=== PATIENT | female | born 1980 | race Caucasian/White ===

== ENCOUNTER 2024-09-21 13:29 | Emergency (ER) | payer BC ==
[2024-09-21 15:00] LABS: Absolute Basophils 0.1 K/uL (0-0.5); Absolute Eosinophils 0.3 K/uL (0-0.5); Absolute Lymphocytes (CBC) 2.9 K/uL (0.7-4.9); Absolute Monocytes 0.7 K/uL (0.1-1.3); Absolute Neutrophil 9.8 K/uL (1.8-8.0); Basophils % 0.8 % (0-1.3); Eosinophils % 1.9 % (0-4.4); Hematocrit 40.8 % (36.0-45.0); Hemoglobin 13.8 g/dL (12.0-15.0); Lymphocytes % 20.9 % (15.3-44.8); MCH 31.1 pg (27.0-35.0); MCHC 33.8 g/dL (32.0-36.0); MCV 92.1 fL (80-100); MPV 7.2 fL (7.6-11.3); Neutrophils % 71.4 % (41.7-73.7); Platelets 458 thou/uL (152-406); RBC Red Blood Cell Count 4.43 M/uL (3.86-4.86); Red Cell Distribution Width 13.5 % (12.1-15.2)
--- NOTE | 2024-09-21 15:12 | RAD REPORT ---
EXAMINATION: Transvaginal Study Probe CLINICAL INDICATION: Vaginal bleeding TECHNIQUE: Real-time ultrasonography of the pelvis was performed transvaginally. Color and spectral D oppler evaluation of the ovaries was performed. COMPARISON: 2017. FINDINGS: The uterus measures 8 x 4 x 4 cm. A fibroid is not seen. The endometrial stripe measures 7 mm 5.3 cm simple appearing right ovarian cyst. Blood flow is present to the right ovary. Left ovary normal in size and echotexture. Right and left adnexa unremarkable No significant free fluid IMPRESSION: 5.3 cm probable benign right ovarian cyst. Recommend follow-up ultrasound in 3-6 months
[2024-09-21 15:13] LABS: Anion Gap 7.6 mEq/L (5.0-15.0); Potassium 3.6 mEq/L (3.5-5.1)
--- NOTE | 2024-09-21 16:33 | ER ---
Nurse's Notes [facility] Name: Primo Luong Age: 44 yrs Sex: Female : 1980 Arrival Date: 09/21/2024 Time: 13:29 Bed 6 Private MD: Diagnosis: Other ovarian cysts Presentation: 09/21 13:58 Chief complaint: Patient states: Started period 2 weeks ago and pt states that she is cm10 still bleeding. Pt reports changing pad 5 times in 1 hr. Pt reports passing clots. Pt also reports abdominal pain and cramping. Coronavirus screen: Client denies travel out of the [place] in the last 14 days. Ebola Screen: Patient denies travel to an Ebola-affected area in the 21 days before illness onset. No symptoms or risks identified at this time. Initial Sepsis Screen: Does the patient meet any 2 criteria? No. Patient's initial sepsis screen is negative. Does the patient have a suspected source of infection? No. Patient's initial sepsis screen is negative. Risk Assessment: Do you want to hurt yourself or someone else? Patient reports no desire to harm self or others. Onset of symptoms was September 21, 2024. 13:58 Method Of Arrival: Ambulatory cm10 13:58 Acuity: FELECIA 3 cm10 Triage Assessment: 13:59 General: Appears in no apparent distress. uncomfortable, Behavior is calm, cooperative. cm10 Neuro: No deficits noted. Level of Consciousness is awake, alert, obeys commands, Oriented to person, place, time, situation, Appropriate for age. Respiratory: No deficits noted. Airway is patent Respiratory effort is even, unlabored, Respiratory pattern is regular, symmetrical. : Reports cramping, in bilateral lower quadrant(s) vaginal bleeding that is with clots, heavy flow. 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 - Infectious Disease History:: Denies. - Social history:: Smoking status: Patient reports the use of cigarette tobacco products, denies chronic smoking, but will smoke occasionally, Reported history of juuling and/or vaping. Screenin:17 [facility] ED Fall Risk Assessment (Adult) History of falling in the last 3 months, ko1 including since admission No falls in past 3 months (0 pts) Confusion or Disorientation No (0 pts) Intoxicated or Sedated No (0 pts) Impaired Gait No (0 pts) Mobility Assist Device Used No (0 pt) Altered Elimination No (0 pt) Score/Fall Risk Level 0 - 2 = Low Risk Oriented to surroundings, Maintained a safe environment, Educated pt \T\ family on fall prevention, incl call for assistance when getting out of bed, Assessed \T\ reinforced patient's understanding of fall precautions, Provided non-skid footwear, Hourly rounding (assess needs \T\ fall precautionary measures) done. Abuse screen: Denies threats or abuse. Denies injuries from another. Nutritional screening: No deficits noted. Tuberculosis screening: No symptoms or risk factors identified. Assessment: 15:18 General: Appears in no apparent distress. comfortable, Behavior is calm, cooperative, ko1 appropriate for age. Pain: Denies pain. Neuro: No deficits noted. Cardiovascular: No deficits noted. Respiratory: No deficits noted. GI: No deficits noted. : Reports vaginal bleeding that is bright red, with clots, heavy flow. EENT: No deficits noted. No signs and/or symptoms were reported regarding the EENT system. Derm: No deficits noted. No signs and/or symptoms reported regarding the dermatologic system. Musculoskeletal: No deficits noted. No signs and/or symptoms reported regarding the musculoskeletal system. Vital Signs: 13:58 BP 151 / 96; Pulse 76; Resp 15; Temp 98.3; Pulse Ox 99% on R/A; Weight 72.57 kg; Height cm10 5 ft. 2 in. ; Pain 9/10; 15:17 BP 118 / 81; Pulse 67; Resp 15; Pulse Ox 100% on R/A; ko1 16:43 BP 124 / 76; Pulse 72; Resp 15; Pulse Ox 99% ; ko1 13:58 Body Mass Index 29.26 (72.57 kg, 157.48 cm) cm10 13:58 Pain Scale: Adult cm10 ED Course: 13:32 Patient arrived in ED. ra3 13:49 Jono Barnett FNP-C is PHCP. dr5 13:49 Eladio Cabrera MD is Attending Physician. dr5 13:59 Triage completed. cm10 13:59 Arm band placed on right wrist. Patient placed in waiting room. cm10 15:07 Transvaginal Study Probe In Process Unspecified. EDMS 15:16 Keya Moody, RN is Primary Nurse. ko1 15:17 Patient has correct armband on for positive identification. Bed in low position. Call ko1 light in reach. Side rails up X 1. Provided Education on: labs. Pulse ox on. NIBP on. Door closed. Noise minimized. Lights dimmed. Warm blanket given. Pillow given. 16:00 Inserted saline lock: 20 gauge in left antecubital area, using aseptic technique. db Flushed with 10 mL NS. 16:16 Assist provider with pelvic exam: Set up pelvic tray. Performed by Jono PINTO db Patient tolerated well. 16:32 Yissel Leonard MD is Referral Physician. dr5 16:43 IV discontinued, intact, bleeding controlled, No redness/swelling at site. Pressure ko1 dressing applied. Administered Medications: No medications were administered Medication: 15:17 VIS not applicable for this client. ko1 Outcome: 16:32 Discharge ordered by MD. dr5 16:43 Discharged to home ambulatory, with family, ko1 16:43 Condition: stable 16:43 Discharge instructions given to patient, family, Instructed on discharge instructions, follow up and referral plans. medication usage, Demonstrated understanding of instructions, follow-up care, medications, Prescriptions given X 1, 16:44 Patient left the ED. ko1 Signatures: Dispatcher [employer] EDAR Keya Moody, RN RN ko1 Coty Arita, RN Shirley Jones, Jazmin Hale RN ra3 Jono Barnett, GEOFF-C TRANSPORTATION PROJECT MANAGER-Cdr5 Corrections: (The following items were deleted from the chart) 15:07 14:50 In radiology for Pelvis Complete+US.RAD.BRZ. EDAR EDMS
--- NOTE | 2024-09-21 16:33 | EDPHYS ---
Physician Documentation [facility] Name: Primo Luong Age: 44 yrs Sex: Female : 1980 Arrival Date: 09/21/2024 Time: 13:29 Bed 6 Private MD: MOHAN Physician Eladio Cabrera HPI: 09/21 13:57 This 44 yrs old Female presents to ER via Unassigned with complaints of dr5 Vaginal Bleeding. 13:57 The patient presents with vaginal bleeding that is heavy, with clots, reports using 5 dr5 pads or tampons per day. Patient reports she started her menstrual cycle on 09/10/2024 and has worsening vaginal bleeding yesterday and this morning. Patient reports 5 pads an hour with heavy clots and lower abdominal cramping. Patient reports having a tubal ligation completed 17 years ago. Patient denies vaginal discharge. Patient denies vaginal trauma or painful intercourse.. 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 - Infectious Disease History:: Denies. - Social history:: Smoking status: Patient reports the use of cigarette tobacco products, denies chronic smoking, but will smoke occasionally, Reported history of juuling and/or vaping. ROS: 13:57 Constitutional: as per hpi dr5 Exam: 17:35 Constitutional: This is a well developed, well nourished patient who is awake, alert, dr5 and in no acute distress. Head/Face: Normocephalic, atraumatic. Eyes: Pupils equal round and reactive to light, extra-ocular motions intact. Lids and lashes normal. Conjunctiva and sclera are non-icteric and not injected. Cornea within normal limits. Periorbital areas with no swelling, redness, or edema. Neck: Trachea midline, no thyromegaly or masses palpated, and no cervical lymphadenopathy. Supple, full range of motion without nuchal rigidity, or vertebral point tenderness. No Meningismus. Chest/axilla: Normal chest wall appearance and motion. Nontender with no deformity. No lesions are appreciated. Cardiovascular: Regular rate and rhythm with a normal S1 and S2. Normal PMI, no JVD. No pulse deficits. Respiratory: Lungs have equal breath sounds bilaterally, clear to auscultation. No rales, rhonchi or wheezes noted. No increased work of breathing, no retractions or nasal flaring. Back: No spinal tenderness. No costovertebral tenderness. Full range of motion. Skin: Warm, dry with normal turgor. Normal color with no rashes, no lesions, and no evidence of cellulitis. Neuro: Awake and alert, GCS 15, oriented to person, place, time, and situation. Cranial nerves II-XII grossly intact. Motor strength 5/5 in all extremities. Sensory grossly intact. Cerebellar exam normal. Normal gait. 17:35 : Pelvic Exam: External exam: is normal, Speculum exam: mild bleeding, no cervicitis, os that is closed, no tissue in cervix is seen, no tissue in vagina is seen, bimanual exam reveals no cervical motion tenderness, os that is closed, no adnexal tenderness on right, Right mild adnexal tenderness noted, Coty. Vital Signs: 13:58 BP 151 / 96; Pulse 76; Resp 15; Temp 98.3; Pulse Ox 99% on R/A; Weight 72.57 kg; Height cm10 5 ft. 2 in. ; Pain 9/10; 15:17 BP 118 / 81; Pulse 67; Resp 15; Pulse Ox 100% on R/A; ko1 16:43 BP 124 / 76; Pulse 72; Resp 15; Pulse Ox 99% ; ko1 13:58 Body Mass Index 29.26 (72.57 kg, 157.48 cm) cm10 13:58 Pain Scale: Adult cm10 MDM: 13:53 Medical Screening Exam initiated dr5 17:35 Differential diagnosis: abruptio placentae, menorrhea, uterine fibroids, Ovarian Cyst. dr5 Data reviewed: vital signs, nurses notes, lab test result(s), radiologic studies, ultrasound. Care significantly affected by the following chronic conditions: Hypertension. Care significantly affected by the following Social Determinants of Health: Poor access to healthcare and/or lack of insurance, Poor access to transportation, Problems related to employment. Counseling: I had a detailed discussion with the patient and/or guardian regarding the historical points, exam findings, and any diagnostic results supporting the discharge/admit diagnosis, lab results, radiology results, the need for outpatient follow up, for definitive care, a family practitioner, an OB/Gyne specialist, to return to the emergency department if symptoms worsen or persist or if there are any questions or concerns that arise at home. ED course: Patient has mild bleeding noted on pelvic exam. Hemoglobin is stable. 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 Patient is agreeable to plan. Transvaginal study revealed ovarian cyst likely causing bleeding. No other abdominal pain. 09/21 13:57 Order name: Abo/rh Typing; Complete Time: 16:31 dr5 09/21 13:57 Order name: Basic Metabolic Panel; Complete Time: 15:17 dr5 09/21 13:57 Order name: CBC with Diff; Complete Time: 15:17 dr5 09/21 13:57 Order name: Test, Serum; Complete Time: 15:17 dr5 09/21 15:07 Order name: Transvaginal Study Probe; Complete Time: 15:17 EDHI 09/21 13:57 Order name: IV Saline Lock; Complete Time: 15:17 dr5 09/21 13:57 Order name: Labs collected and sent; Complete Time: 15:17 dr5 09/21 13:57 Order name: NPO; Complete Time: 15:17 dr5 09/21 15:41 Order name: Pelvic Exam Setup; Complete Time: 15:47 dr5 Administered Medications: No medications were administered Disposition Summary: 09/21/24 16:32 Discharge Ordered Notes: Location: Home dr5 Condition: Stable dr5 Diagnosis - Other ovarian cysts dr5 Followup: dr5 - With: Emergency Department - When: As needed - Reason: Worsening of condition Followup: dr5 - With: Private Physician - When: 1 - 2 days - Reason: Recheck today's complaints, Continuance of care, Re-evaluation by your physician Followup: dr5 - With: Yissel Leonard MD - When: Tomorrow - Reason: Discharge Instructions: - Discharge Summary Sheet dr5 - Ovarian Cyst dr5 Forms: - Medication Reconciliation Form dr5 - Patient Portal Instructions dr5 - Leadership Thank You Letter dr5 Prescriptions: - acetaminophen-codeine 300-15 mg Oral tablet - take 1 tablet ORAL route 4 times per day As needed; 20 tablet; Refills: 0, dr5 Product Selection Permitted Addendum: 09/23/2024 15:30 Co-signature as Attending Physician, Eladio Cabrera MD I agree with the assessment and c eddy plan of care. Signatures: Dispatcher [employer] Eladio Villatoro MD MD cha Martinez, Clarissa, RN RN cm10 Jono Barnett, STRIP DEBURRER-C STRIP DEBURRER-Cdr5 Corrections: (The following items were deleted from the chart) 09/21 15:07 13:58 Pelvis Complete+US.RAD.BRZ ordered. KENDY LARRY
[2024-09-21 17:21] VITALS: TEMP 98.3
[2024-09-21 17:22] VITALS: BP 124/76; O2SAT 99
== END 2024-09-21 16:44 | disposition home or self-care (01) ==
LOC: ER 13:29
DX: N83.299 Other ovarian cyst, unspecified side (principal)
CPT/HCPCS: 36415; 76830; 80048; 84703; 85025; 86900; 86901; 99284